=== PATIENT | female | born 1950 | race Caucasian/White ===

== ENCOUNTER 2022-01-04 13:41 | Outpatient (CLI) | payer MEDICARE | END 2022-01-04 13:42 | disposition home or self-care (01) | LOC: CSHMAMMO 13:41 | PROVIDERS: ATTEND Physician Assistant | DX: Z12.31 Encounter for screening mammogram for malignant neoplasm of breast (principal); Z13.820 Encounter for screening for osteoporosis; M85.851 Other specified disorders of bone density and structure, right thigh; M85.852 Other specified disorders of bone density and structure, left thigh; Z78.0 Asymptomatic menopausal state | CPT/HCPCS: 77063; 77067; 77080 ==

== ENCOUNTER 2023-02-11 14:09 | Outpatient (CLI) | payer OTHER | END 2023-02-11 14:10 | disposition home or self-care (01) | LOC: CSHMAMMO 14:09 | PROVIDERS: ATTEND Physician Assistant | DX: Z12.31 Encounter for screening mammogram for malignant neoplasm of breast (principal) | CPT/HCPCS: 77063; 77067 ==

== ENCOUNTER 2024-07-08 10:04 | Outpatient (CLI) | payer MEDICARE | END 2024-07-08 10:05 | disposition home or self-care (01) | LOC: CSHMAMMO 10:04 | PROVIDERS: ATTEND Physician Assistant | DX: Z12.31 Encounter for screening mammogram for malignant neoplasm of breast (principal); Z78.0 Asymptomatic menopausal state; M85.851 Other specified disorders of bone density and structure, right thigh | CPT/HCPCS: 77063; 77067; 77080 ==

== ENCOUNTER 2025-08-03 10:29 | Outpatient (CLI) | payer MEDICARE | END 2025-08-03 10:30 | disposition home or self-care (01) | LOC: CSHMAMMO 10:29 | PROVIDERS: ATTEND Physician Assistant | DX: Z12.31 Encounter for screening mammogram for malignant neoplasm of breast (principal); Z85.89 Personal history of malignant neoplasm of other organs and systems | CPT/HCPCS: 77063; 77067 ==

== ENCOUNTER 2025-08-20 23:28 | Emergency (ER) | payer MEDICARE ==
[2025-08-21] MEDS ORDERED: Amoxicillin/Potassium Clav 875 MG TAB ONE (00:43)
== END 2025-08-21 01:05 | disposition home or self-care (01) ==
LOC: CSHERS 23:28
DX: J01.00 Acute maxillary sinusitis, unspecified (principal); I10 Essential (primary) hypertension; Z79.899 Other long term (current) drug therapy
CPT/HCPCS: 87428; 99283